=== PATIENT | male | born 1960 | race Caucasian/White ===

== ENCOUNTER 2023-02-13 15:45 | Outpatient (AMB) | payer OTHER, SELFPAY ==
[2023-02-13 15:47] VITALS: BP 128/66; PULSE 90; RESP 13; TEMP 36.6; O2SAT 97; BMI 35.9
--- NOTE | 2023-02-13 15:47 | A.OFFPC_ITS ---
Vital Signs 02/13/23 15:47 Height 5 ft 10 in Weight 250 lb BMI 35.9 BP 128/66 Blood Pressure Location Lt brachial Position Sitting Respiration 13 Pulse 90 Pulse Source Pulse Oximeter Temp 97.8 F Temp Source Temporal Artery Scan Pulse Oximetry (%) 97 Oxygen Delivery Method Room Air Intake Visit Reasons: Swollen feet Intake Note: Patient states that he would like a script sent over for his oxycodone- acetaminophen. Patient also states he never received the valacyclovir. Patient states he would also like a blood pressure cuff ordered. Sample Preparation Supervisor Required: No Accompanied by: Self / Same As Patient Allergies No Known Allergies Allergy (Verified 02/13/23 16:00) Medication List - Last Reconciled 02/13/23 by Sarah Underwood CNP atorvastatin 40 mg PO DAILY 90 days ibuprofen 800 mg PO Q8H PRN lisinopril 10 mg PO DAILY 90 days oxycodone-acetaminophen 5-325 mg 0 tabs PO valacyclovir 500 mg PO BID 14 days vitamin B complex 1 tab PO DAILY 90 days Tobacco use date assessed: 09/08/22 Fall risk assessment: No Falls in past year Last assessed Fall Risk: 02/13/23 Dental Screening Dental Screen Date: 02/13/23 Did you have a dental visit in the last 12 months?: Yes Did you have a dental problem in the last 6 months where you did not have access to dental care?: No Was dental information given to patient?: Patient has dentist HPI HPI Comments History of Present Illness Details 62-year-old male presents with complaints of swollen feet for the past 2 months. The swelling is unchanged. He denies prolonged standing, shortness of breath, chest pain, or fatigue. He has history of chronic bilateral knee pain from osteoarthritis. He notes he has knee replacement surgery schedule with [facility] in May. He states he did not follow-up with pain management as referred by his PCP because I don't need it. [facility] Medical History (Updated 02/13/23 @ 16:00 by Nila Sheriff MA) Shingles Surgical History (Updated 02/13/23 @ 15:59 by Nila Sheriff MA) No pertinent past surgical history Family History (Updated 02/13/23 @ 16:01 by Nila Sheriff MA) Other Alcoholism Social History Housing: Apartment Patient Tobacco Use Status: Former Tobacco user e-Cigarette/Vaping Use: Never Used Second Hand Smoke Exposure: No service: Yes Current occupational status: disabled Current occupational exposures/hazards: No Cognitive needs: No Hearing needs: No Vision needs: No Questionnaire Thrive Questionnaire Date Thrive assessed: 09/08/22 THAO-7 AMB Questionnaire THAO-7 Date THAO - 7 assessed: 09/08/22 Source: Developed by Drs. Prince Peck, Oneida Mena, Ashish Duncan and colleagues, with an educational wicho from [email or web address]. Review of Systems Const Details: Const Denies chills, Denies fatigue, Denies fever(s), Denies headache(s) and Denies weakness ENT Denies dizziness and Denies headache(s) Card Denies chest pain, Denies lightheadedness, Denies dyspnea and Denies other (Palpitations) Resp Denies cough, Denies dyspnea, Denies wheezing and Denies other ( shortness of breath) GI Denies abdominal pain, Denies melena, Denies hematochezia, Denies change in bowel habits, Denies dyspepsia and Denies nausea Denies hematuria and Denies dysuria Musc Reports both feet swelling, Denies abnormal gait, Denies myalgias, Denies arthralgias, Denies numbness and Denies tingling Skin/Breast Denies rash, Denies unusual bruising and Denies wounds Neuro Denies abnormal gait, Denies dizziness, Denies headache(s), Denies memory loss, Denies numbness, Denies Sensory deficit (Neuro), Denies tingling and Denies weakness Psych Denies anxiety and Denies depression Endo Denies fatigue Aller/Immun Denies wheezing Physical exam (Primary Care) Vital Signs: Last Vital Signs Temp 97.8 F 02/13/23 15:47 Pulse 90 02/13/23 15:47 Resp 13 02/13/23 15:47 BP 128/66 02/13/23 15:47 Pulse Ox 97 02/13/23 15:47 Oxygen Delivery Method Room Air 02/13/23 15:47 BMI result Body Mass Index 35.9 Tobacco/Smoking Status: Tobacco use Status Tobacco use date assessed 09/08/22 02/13/23 16:01 Patient Tobacco Use Status Former Tobacco user 02/13/23 16:01 e-Cigarette/Vaping Use Never Used 02/13/23 16:01 Thrive Assessment: Date of Thrive Assessment Date Thrive assessed 09/08/22 02/13/23 16:01 Const Other: General: no acute distress and well developed Nutritional Appearance: well nourished Orientation/consciousness: patient oriented x3 [facility] Head: Yes normocephalic and Yes atraumatic Eyes General: appearance normal, both eyes and all related structures Pupils: Equal, round and reactive pupils present EOM: EOMs intact bilaterally Resp Effort & Inspection: normal respiratory effort Auscultation: clear to auscultation bilaterally Cardio Rate: regular rate Rhythm: regular rhythm Heart sounds: S1 normal heart sound present, S2 normal heart sound present, no gallops, no murmurs and no rubs GI Palpation (GI): No Abdominal aortic bruit present, Soft to palpation, nontender, No hepatosplenomegaly present and No Rebound tenderness present Auscultation: normal bowel sounds General: Yes no CVA tenderness Back/Spine/Pelvis Back: no CVA tenderness Cervical Spine: cervical ROM normal and No Cervical spine tenderness Thoracic/Lumbar Spine: thoraco-lumbar ROM normal, No pain with thoraco-lumbar ROM, No thoracic spinal tenderness and No lumbar spinal tenderness Extrem General: Yes normal to inspection, No calf tenderness Moderate edema noted to bilateral ankle and feet, no erythema or overt injury, normal DP pulse bilat Skin General: warm and dry. Normal skin color. Normal skin turgor Lesions: no lesions Rashes: no rashes Trauma: no lacerations or abrasions Wounds: no wounds Nails: normal Neuro General: patient oriented x3, gait normal and no focal neuro deficit Cranial nerves: Yes Equal, round and reactive pupils present Cognition (Neuro): normal cognition Gait exam (Neuro): Normal gait present Motor exam (neuro): 5/5 motor strength present throughout Sensory Exam: No Sensory deficit (Neuro) Psych Affect: normal affect Assessment and Plan Assessment & Plan (1) Localized swelling of both lower extremities: Code(s): M79.89 - Other specified soft tissue disorders Plan: 62-year-old male presents with complaints of swollen feet for the past 2 months. The swelling is unchanged Possible fluid buildup. May be due abnormal electrolytes or poor renal function Furosemide. Take as prescribed Low-sodium diet encouraged Elevate lower extremities to reduce edema Advised to get pending fasting blood work done Follow-up with PCP in 1 month or return sooner with worsening or new signs and symptoms Verbalized understanding and agreed with treatment plan. Medications: New furosemide 20 mg PO DAILY 5 days 5 tabs 0RF Refilled valacyclovir 500 mg PO BID 14 days 28 tabs 2RF Coding Level of Care Code Est Pt Level 3 (83834) Diagnoses Localized swelling of both lower extremities M79.89 Time Spent (min) 25
== END 2023-02-13 16:26 | disposition home or self-care (01) ==
PROVIDERS: PCP Family Medicine; Visit Provider Nurse Practitioner Family
DX: M79.89 Other specified soft tissue disorders (principal)
CPT/HCPCS: 99213

== ENCOUNTER 2023-03-16 15:06 | Outpatient (AMB) | payer OTHER, SELFPAY ==
[2023-03-16 15:35] VITALS: BP 140/76; PULSE 104; RESP 16; TEMP 37.2; O2SAT 96; BMI 35.4
--- NOTE | 2023-03-16 15:35 | A.OFFPC_ITS ---
Vital Signs 03/16/23 15:35 Height 5 ft 10 in Weight 247 lb BMI 35.4 BP 140/76 H Blood Pressure Location Rt brachial Position Sitting Respiration 16 Pulse 104 H Pulse Source Pulse Oximeter Temp 98.9 F Temp Source Temporal Artery Scan Pulse Oximetry (%) 96 Oxygen Delivery Method Room Air Intake Visit Reasons: 1 mos swelling to BLE, labs review Intake Note: Patient reports he is here to follow up with the swelling his bilateral feet. Patient reports he did not get his labs done because he forgets to fast. Still Operator Batch Or Continuous Required: No Accompanied by: Self / Same As Patient Allergies No Known Allergies Allergy (Verified 03/16/23 15:42) Tobacco use date assessed: 09/08/22 Fall risk assessment: No Falls in past year Last assessed Fall Risk: 03/16/23 Dental Screening Dental Screen Date: 03/16/23 Did you have a dental visit in the last 12 months?: Yes Did you have a dental problem in the last 6 months where you did not have access to dental care?: No Was dental information given to patient?: Patient has dentist HPI 1 mos swelling to BLE, labs review HPI Details 63 y/o male presents to f/u bilateral lower extremities swelling and labs. Had seen Sarah Underwood 02/13/23 for this - was given furosemide 20mg and was recommended a low-sodium diet. Pt reports ongoing swelling bilateral lower extremities. HPI Comments History of Present Illness Details Documentation assistance for Leonel Lopez MD, was provided by Kristopher Phillips, Mineral Technologist on 03/16/2023 4:07 PM EST. I, Dr. Lopez, have read, observed, and verified documentation. PFSH Medical History Shingles Surgical History No pertinent past surgical history Family History Other Alcoholism Social History Housing: Apartment Patient Tobacco Use Status: Former Tobacco user e-Cigarette/Vaping Use: Never Used Second Hand Smoke Exposure: No service: Yes Current occupational status: disabled Current occupational exposures/hazards: No Cognitive needs: No Hearing needs: No Vision needs: No Questionnaire Thrive Questionnaire Date Thrive assessed: 09/08/22 THAO-7 AMB Questionnaire THAO-7 Date THAO - 7 assessed: 09/08/22 Source: Developed by Drs. Prince Peck, Oneida Mena, Ashish Duncan and colleagues, with an educational wicho from [email or web address]. Review of Systems Const Denies chills, Denies fatigue, Denies fever(s), Denies headache(s) and Denies weakness ENT Denies dizziness and Denies headache(s) Card Denies chest pain, Denies lightheadedness, Denies dyspnea and Denies other (P alpitations) Resp Denies cough, Denies dyspnea, Denies wheezing and Denies other ( shortness of breath) Musc Denies numbness and Denies tingling Neuro Denies dizziness, Denies headache(s), Denies numbness, Denies tingling, Denies paresthesias and Denies weakness Psych Denies anxiety and Denies depression Endo Denies fatigue Aller/Immun Denies wheezing Physical exam (Primary Care) Vital Signs: Last Vital Signs Temp 98.9 F 03/16/23 15:35 Pulse 104 H 03/16/23 15:35 Resp 16 03/16/23 15:35 BP 140/76 H 03/16/23 15:35 Pulse Ox 96 03/16/23 15:35 Oxygen Delivery Method Room Air 03/16/23 15:35 BMI result Body Mass Index 35.4 Tobacco/Smoking Status: Tobacco use Status Tobacco use date assessed 09/08/22 03/16/23 15:44 Patient Tobacco Use Status Former Tobacco user 03/16/23 15:44 e-Cigarette/Vaping Use Never Used 03/16/23 15:44 Thrive Assessment: Date of Thrive Assessment Date Thrive assessed 09/08/22 03/16/23 15:44 Const General: no acute distress and well developed Nutritional Appearance: well nourished Orientation/consciousness: patient oriented x3 [facility] Head: Yes normocephalic and Yes atraumatic Eyes General: appearance normal, both eyes and all related structures Pupils: Equal, round and reactive pupils present EOM: EOMs intact bilaterally Resp Effort & Inspection: normal respiratory effort Auscultation: clear to auscultation bilaterally Cardio Rate: regular rate Rhythm: regular rhythm Heart sounds: S1 normal heart sound present, S2 normal heart sound present, no gallops, no murmurs and no rubs Neuro General: patient oriented x3 and gait normal Cranial nerves: Yes Equal, round and reactive pupils present Psych Affect: normal affect Assessment and Plan Assessment & Plan (1) Localized swelling of both lower extremities: Code(s): M79.89 - Other specified soft tissue disorders Plan: Lower extremity edema bilaterally No pulmonary congestion This appears to be lower extremity venous insufficiency Encouraged elevation of lower extremities Encouraged salt/sodium avoidance Will give him another script for furosemide which he can continue Checking labs (2) Bilateral knee pain: Code(s): M25.561 - Pain in right knee; M25.562 - Pain in left knee Plan: Osteoarthritis bilateral knees and [facility] plans total knee replacements beginning in May with his left knee. Orders: Orders Comprehensive [place]. Panel Fast Today M79.89 - Other specified soft tissue disorders, Z00.00 - Encounter for general adult medical examination without abnormal findings Lipid Panel Today Z00.00 - Encounter for general adult medical examination without abnormal findings Prostate Specific Antigen Scr Today Z12.5 - Encounter for screening for malignant neoplasm of prostate TSH reflex Free T4 Today M79.89 - Other specified soft tissue disorders, Z00.00 - Encounter for general adult medical examination without abnormal findings Microalbumin, Random (w Creat) Today I10 - Essential (primary) hypertension, M79.89 - Other specified soft tissue disorders Complete Blood Count Auto Diff Today M79.89 - Other specified soft tissue disorders, Z00.00 - Encounter for general adult medical examination without abnormal findings UA and rflx microscopic Today M79.89 - Other specified soft tissue disorders, Z00.00 - Encounter for general adult medical examination without abnormal findings Medications: Changed From furosemide 20 mg PO DAILY 5 days 5 tabs 0RF To furosemide 10 mg (1/2 x 20 mg) PO DAILY 30 days 15 tabs 1RF Coding Level of Care Code Est Pt Level 3 (60456) Diagnoses Localized swelling of both lower extremities M79. Bilateral knee pain M25.561; M25.562
== END 2023-03-16 16:29 | disposition home or self-care (01) ==
PROVIDERS: PCP Family Medicine; Visit Provider Family Medicine
DX: M79.89 Other specified soft tissue disorders (principal); M25.561 Pain in right knee; M25.562 Pain in left knee
CPT/HCPCS: 99213

== ENCOUNTER 2023-03-31 08:39 | Outpatient (REF) | payer OTHER, SELFPAY ==
[2023-03-31 11:28] LABS: MANUAL DIFF FLAG NO
[2023-03-31 11:34] LABS: Basophils Absolute Auto 0.1 X10*3/uL (0.0-0.2); Basophils Percent Auto 0.6 % (0-2); Eosinophils Absolute Auto 0.6 X10*3/uL (0.0-0.4); Eosinophils Percent Auto 6.9 % (0-4); Hematocrit 41.4 % (42.0-52.0); Hemoglobin 13.9 g/dl (14.0-18.0); Imm Gran Abs Auto 0.02 X10*3/uL (0.00-0.03); Imm Gran Pct Auto 0.2 % (0.0-0.4); Lymphocytes Absolute Auto 1.7 X10*3/uL (1.2-4.9); Lymphocytes Percent Auto 20.8 % (20-40); Mean Corpuscular HGB Conc 33.6 g/dl (31.0-36.0); Mean Corpuscular Hemoglobin 31.2 pg (27.0-33.0); Mean Platelet Volume 10.7 fL (9.4-12.4); Monocytes Absolute Auto 0.7 X10*3/uL (0.1-1.2); Monocytes Percent Auto 7.8 % (2-11); Neutrophils Absolute Auto 5.3 x10*3/uL (2.0-8.3); Neutrophils Percent Auto 63.7 % (45-73); Platelet Count 283 X10*3/uL (160-400); Red Blood Count 4.45 X10*6/uL (4.60-5.80); Red Cell Distribution Width 12.7 % (11.0-16.0); White Blood Count 8.3 X10*3/uL (4.8-10.8)
[2023-03-31 11:42] LABS: Appearance Urine Clear; Color Urine Yellow; Glucose Urine UA Negative (Negative); Leukocyte Esterase Urine Negative (Negative); Nitrite Urine Negative (Negative); PH 5.5 (5.0-9.0); Specific Gravity - Urine 1.015 (1.005-1.025); Urine Blood Negative (Negative); Urine Ketones Negative (Negative); Urine Protein Negative (Neg-Trace)
[2023-03-31 12:45] LABS: Creatinine Urine 84.72 mg/dL; Microalbum/Creatinine Ratio Ur 8.2 ug/mg cr (<30)
[2023-03-31 14:44] LABS: Alanine Aminotransferase 51 U/L (0-40); Albumin Level 4.3 g/dL (3.5-5.0); Alkaline Phosphatase 104 U/L (39-117); Anion Gap 13 (12-20); Aspartate Amino Transferase 26 U/L (5-37); Bilirubin Total 0.6 mg/dL (0.0-1.0); Blood Urea Nitrogen 18 mg/dL (9-16); Calcium 9.8 mg/dL (8.4-10.2); Carbon Dioxide 27 mmol/L (22-29); Chloride 103 mmol/L (96-108); Cholesterol 146 mg/dL (<200); Estimated Glomerular Filt Rate > 60; Glucose Fasting 183 mg/dL (60-99); HDL Cholesterol 33 mg/dL (>40); LDL Cholesterol Calculated 78 mg/dL (<100); Potassium 4.3 mmol/L (3.3-5.1); Sodium 139 mmol/L (135-145); Total Protein 7.4 g/dL (6.5-8.0); Triglycerides 178 mg/dL (<150)
[2023-03-31 15:23] LABS: Prostate Specific Antigen Scr 0.61 ng/mL (<0.05-4.0)
[2023-03-31 15:43] LABS: TSH reflex Free T4 1.22 uIU/mL (0.32-4.0)
== END 2023-03-31 08:40 | disposition home or self-care (01) ==
LOC: HO.WFDLDS 08:39
PROVIDERS: Visit Provider Family Medicine
DX: Z00.00 Encounter for general adult medical examination without abnormal findings (principal); Z12.5 Encounter for screening for malignant neoplasm of prostate; M79.89 Other specified soft tissue disorders; I10 Essential (primary) hypertension
CPT/HCPCS: 36415; 80053; 80061; 81003; 82043; 82570; 84153; 84443; 85025

== ENCOUNTER 2023-05-25 13:26 | Outpatient (AMB) | payer OTHER, SELFPAY ==
--- NOTE | 2023-05-25 13:16 | MHC.PC.OV ---
Intake Visit Reasons: f/u labs Intake Note: Patient is here to follow up on blood work today. Patient would like to talk about Oxycocone/ acetominphen prescrition. Allergies No Known Allergies Allergy (Verified 05/25/23 13:19) Tobacco use date assessed: 05/25/23 Fall risk assessment: No Falls in past year Last assessed Fall Risk: 05/25/23 HPI f/u labs HPI Details 63 y/o male presents to f/u labs via telemedicine. Mild normocytic anemia Elevated fasting blood sugar Elevated ALT Mildly elevated triglycerides with low HDL, on atorvastatin PFSH Medical History Shingles Surgical History No pertinent past surgical history Family History Other Alcoholism Social History Housing: Apartment Patient Tobacco Use Status: Former Tobacco user e-Cigarette/Vaping Use: Never Used Second Hand Smoke Exposure: No service: Yes Current occupational status: disabled Current occupational exposures/hazards: No Cognitive needs: No Hearing needs: No Vision needs: No Questionnaire Thrive Questionnaire Date Thrive assessed: 09/08/22 THAO-7 AMB Questionnaire THAO-7 Date THAO - 7 assessed: 09/08/22 Source: Developed by Drs. Prince Peck, Oneida Mena, Ashish Duncan and colleagues, with an educational wicho from [employer]. Review of Systems Const Denies chills, Denies fatigue, Denies fever(s), Denies headache(s) and Denies weakness ENT Denies dizziness and Denies headache(s) Card Denies dyspnea Resp Denies cough, Denies dyspnea, Denies wheezing and Denies other (shortness of breath) Musc Denies numbness and Denies tingling Neuro Denies dizziness, Denies headache(s), Denies numbness, Denies tingling and Denies weakness Psych Denies anxiety and Denies depression Endo Denies fatigue Aller/Immun Denies wheezing Physical exam (Primary Care) Tobacco/Smoking Status: Tobacco use Status Tobacco use date assessed 05/25/23 05/25/23 13:21 Patient Tobacco Use Status Former Tobacco user 05/25/23 13:17 e-Cigarette/Vaping Use Never Used 05/25/23 13:17 Thrive Assessment: Date of Thrive Assessment Date Thrive assessed 09/08/22 05/25/23 13:17 Telehealth Telehealth Location of provider rendering services: practice address Location of patient: address on file Patient Identification confirmed using: Name, : Yes Telehealth method: voice only Patient verbally consented to treatment: Yes Patient verbally consented to billing insurance company: Yes Patient informed of any privacy concerns related to visit: Yes Assessment and Plan Assessment & Plan (1) Mild anemia: Code(s): D64.9 - Anemia, unspecified Plan: We can repeat his CBC with his next blood draw (2) Elevated fasting glucose: Code(s): R73.01 - Impaired fasting glucose Plan: recheck fasting blood sugar with next blood draw will add A1c as well (3) Elevated ALT measurement: Code(s): R74.01 - Elevation of levels of liver transaminase levels Plan: recheck liver enzyme in 6-8 weeks (4) Low HDL (under 40): Code(s): E78.6 - Lipoprotein deficiency Plan: encouraged exercise and [place] 3 fatty acids in diet (5) Bilateral knee pain: Code(s): M25.561 - Pain in right knee; M25.562 - Pain in left knee Plan: patient notes ongoing severe bilateral knee pain. Does have imaging which shows osteoarthritis of the knees with bone spurring will review his prior medical records he can schedule an appointment for evaluation pain control for 7-10 days from now. Orders: Orders Hemoglobin A1c Today R73.01 - Impaired fasting glucose Comprehensive [place]. Panel Fast Today R74.01 - Elevation of levels of liver transaminase levels, Z00.00 - Encounter for general adult medical examination without abnormal findings Complete Blood Count Auto Diff Today D64.9 - Anemia, unspecified, Z00.00 - Encounter for general adult medical examination without abnormal findings Coding Level of Care Code Tele Est Pt Level 2 (03191) Diagnoses Mild anemia D64.9 Elevated fasting glucose R73.01 Elevated ALT measurement R74.01 Low HDL (under 40) E78.6 Bilateral knee pain M25.561; M25.562
== END 2023-05-25 14:45 ==
LOC: HO.HMGFM 13:26
PROVIDERS: PCP Family Medicine; Visit Provider Family Medicine
DX: D64.9 Anemia, unspecified (principal); R73.01 Impaired fasting glucose; R74.01 Elevation of levels of liver transaminase levels; E78.6 Lipoprotein deficiency; M25.561 Pain in right knee; M25.562 Pain in left knee
CPT/HCPCS: 99441

== ENCOUNTER 2023-09-16 12:06 | Outpatient (AMB) | payer OTHER, SELFPAY ==
[2023-09-16 12:15] VITALS: BP 142/76; PULSE 82; O2SAT 97; BMI 33.6
--- NOTE | 2023-09-16 12:15 | A.OFFPC_ITS ---
Vital Signs 09/16/23 12:15 Height 5 ft 10 in Weight 234 lb 4 oz BMI 33.6 BP 142/76 H Blood Pressure Location Lt brachial Position Sitting Pulse 82 Pulse Source Pulse Oximeter Pulse Oximetry (%) 97 Oxygen Delivery Method Room Air Intake Visit Reasons: Follow up knee pain Intake Note: Patient is here to follow up on bilateral knee pain. Allergies No Known Allergies Allergy (Verified 09/16/23 12:20) Tobacco use date assessed: 09/16/23 Fall risk assessment: No Falls in past year Last assessed Fall Risk: 09/16/23 Dental Screening Dental Screen Date: 09/16/23 Did you have a dental visit in the last 12 months?: Yes Did you have a dental problem in the last 6 months where you did not have access to dental care?: No Was dental information given to patient?: Patient has dentist HPI Follow up knee pain HPI Details 63 y/o male presents to f/u knee pain. Had seen a specialist at [facility] but pt reports he had been unsatisfied with their treatment plan/surgery. Knee x-ray in 2021 showed significant arthritic changes. [facility] Medical History Shingles Surgical History No pertinent past surgical history Family History Other Alcoholism Social History Housing: Apartment Patient Tobacco Use Status: Former Tobacco user e-Cigarette/Vaping Use: Never Used Second Hand Smoke Exposure: No service: Yes Current occupational status: disabled Current occupational exposures/hazards: No Cognitive needs: No Hearing needs: No Vision needs: No Questionnaire PHQ-9 Over the last 2 weeks, how often have you been bothered by any of the following problems? 1. Little interest or pleasure in doing things: not at all 2. Feeling down, depressed, or hopeless: not at all 3. Trouble falling or staying asleep, or sleeping too much: nearly every day 4. Feeling tired or having little energy: not at all 5. Poor appetite or overeating: not at all 6. Feeling bad about yourself - or that you are a failure or have let yourself or your family down: not at all 7. Trouble concentrating on things, such as reading the newspaper or watching television: not at all 8. Moving or speaking so slowly that other people could have noticed. Or the opposite - being so fidgety or restless that you have been moving around a lot more than usual: not at all 9. Thoughts that you would be better off or of hurting yourself in some way: not at all Total score: 3 Depression Screening Interpretation: Negative Depression Screening Done: Yes 69759 - PHQ-9 Billing: Yes Source: Developed by Drs. Prince Peck, Oneida Mena, Ashish Duncan and colleagues, with an educational wicho from [employer]. Thrive Questionnaire Date Thrive assessed: 09/16/23 I am a: Patient What is your living situation today?: I have a steady place to live Within the past 12 months, did the food you bought not last and you didn't have the money to get more?: Never true Within the past 12 months, did you worry whether your food would run out before you got money to buy more?: Never true Do you have trouble paying for medicines?: No Do you have trouble getting transportation to medical appointments?: No Do you have trouble paying your heating and electricity bill?: No Do you have trouble taking care of your child, family member or friend?: No Do you have trouble with day-to-day activities such as bathing, preparing meals, shopping, managing finances, etc.?: No Are you currently unemployed and looking for a job?: No Are you interested in more education?: No THRIVE Score: 0 AUDIT C Alcohol Use Questionnaire (AUDIT-C) 1. How often do you have a drink containing alcohol?: 2-3 times a week 2. How many drinks containing alcohol do you have on a typical day when you are drinking?: 1 or 2 3. How often do you have six or more drinks on one occasion?: Never Total Score: 3 THAO-7 AMB Questionnaire THAO-7 Date THAO - 7 assessed: 09/16/23 Feeling nervous, anxious, or on edge: 0 = Not at all Not being able to stop or control worryin = Not at all Worrying too much about different things: 0 = Not at all Trouble relaxin = Not at all Being so restless that it is hard to sit still: 0 = Not at all Becoming easily annoyed or irritable: 0 = Not at all Feeling afraid as if something awful might happen: 0 = Not at all Total THAO-7 score (0-4 normal; 5-9 mild; 10-14 moderate; 15-21 severe): 0 Source: Developed by Drs. Prince Peck, Oneida Mena, Ashish Duncan and colleagues, with an educational wicho from [employer]. THAO-7 Assessment Billing THAO-7 Assessment Tool: THAO-7 Assessment 97511 Physical exam (Primary Care) Vital Signs: Last Vital Signs Pulse 82 09/16/23 12:15 BP 142/76 H 09/16/23 12:15 Pulse Ox 97 09/16/23 12:15 Oxygen Delivery Method Room Air 09/16/23 12:15 BMI result Body Mass Index 33.6 Tobacco/Smoking Status: Tobacco use Status Tobacco use date assessed 09/16/23 09/16/23 12:30 Patient Tobacco Use Status Former Tobacco user 09/16/23 12:30 e-Cigarette/Vaping Use Never Used 09/16/23 12:30 PHQ-9: PHQ-9 Score PHQ-9: Total score 3 09/16/23 12:44 Depression Screening Interpretation: Negative Thrive Assessment: Date of Thrive Assessment Date Thrive assessed 09/16/23 09/16/23 12:30 Assessment and Plan Assessment & Plan (1) Bilateral knee pain: Code(s): M25.561 - Pain in right knee; M25.562 - Pain in left knee Plan: Ongoing?bilateral?knee?pain. X-rays?show?moderately?severe?arthritis?worst?in?medial?compartments Bilaterally Will?refer?to?ortho?to?consider?injection?therapy?verses?surgery.??Patient?would ?like?to?consider?all?options?prior?to?surgeries. He?gets?some?relief?with?ibuprofen?800?mg?once?a?day. Will?try?meloxicam?which?may?give?him?longer?relief?for?single?dose?per?day Orders: Referrals Orthopedics Referral M17.9 - Osteoarthritis of knee, unspecified, M25.561 - Pain in right knee, M25.562 - Pain in left knee Medications: New meloxicam 15 mg PO DAILY 30 tabs 2RF 30 days prednisone 40 mg (2 x 20 mg) PO DAILY 8 tabs 0RF 4 days Refilled lisinopril 10 mg PO DAILY 90 tabs 3RF 90 days Coding Level of Care Code Est Pt Level 3 (64872) Diagnoses Bilateral knee pain M25.561; M25.562 Additional Codes THAO-7 Assessment Billing - THAO-7 Assessment Tool: THAO-7 Assessment 41119 ([id number])
== END 2023-09-16 14:01 | disposition home or self-care (01) ==
PROVIDERS: PCP Family Medicine; Visit Provider Family Medicine
DX: M25.561 Pain in right knee (principal); M25.562 Pain in left knee
CPT/HCPCS: 99213

== ENCOUNTER 2023-10-08 09:23 | Outpatient (REF) | payer OTHER, SELFPAY ==
--- NOTE | ~2023-10-08 | XR_ITS ---
EXAMINATION: XR KNEE, BILATERAL CLINICAL INDICATION: Pain in bilateral knees. TECHNIQUE: 3 views of each knee. FINDINGS: RIGHT KNEE: The bones are diffusely demineralized. No significant suprapatellar effusion. Vvgcmujh-ez-pgjolw narrowing of the medial compartment with subchondral sclerosis. Tricompartmental osteophytes. Advanced degenerative changes in the patellofemoral joint. LEFT KNEE: Severe degenerative changes in the medial compartment with obliteration of the joint space and subchondral remodeling and sclerosis. Tricompartmental osteophytes. No significant joint effusion. Advanced degenerative changes in the patellofemoral joint. XR/XR knee LT 3V IMPRESSION: Severe degenerative changes bilateral knees, left greater than right.
--- NOTE | ~2023-10-08 | XR_ITS ---
EXAMINATION: XR KNEE, BILATERAL CLINICAL INDICATION: Pain in bilateral knees. TECHNIQUE: 3 views of each knee. FINDINGS: RIGHT KNEE: The bones are diffusely demineralized. No significant suprapatellar effusion. Lalsfkju-kl-tsrdzt narrowing of the medial compartment with subchondral sclerosis. Tricompartmental osteophytes. Advanced degenerative changes in the patellofemoral joint. LEFT KNEE: Severe degenerative changes in the medial compartment with obliteration of the joint space and subchondral remodeling and sclerosis. Tricompartmental osteophytes. No significant joint effusion. Advanced degenerative changes in the patellofemoral joint. XR/XR knee RT 3V IMPRESSION: Severe degenerative changes bilateral knees, left greater than right.
== END 2023-10-08 09:24 | disposition home or self-care (01) ==
LOC: HO.HOSX 09:23
PROVIDERS: Visit Provider Orthopaedic Surgery
DX: M25.562 Pain in left knee (principal); M25.561 Pain in right knee
CPT/HCPCS: 73562; 99202

== ENCOUNTER 2023-10-08 13:03 | Outpatient (AMB) | payer OTHER, SELFPAY ==
[2023-10-08 13:44] VITALS: BMI 33.6
--- NOTE | 2023-10-08 13:44 | MHC.OFFVIS ---
Intake Vital Signs 10/08/23 13:44 Height 5 ft 10 in Weight 234 lb BMI 33.6 Intake Visit Reasons: [employer]-B/L knee pain Intake Note: Russel is a 63 year old male who presents as a new patient with bilateral knee pain. Patient reports his pain has been going on for about 2 years and is a 7 on the 1-10 pain scale. Left is worse then the Right. He states he has had cortisone injections which gave him minimal relief. He has also had viscosupplementation injections which gave him fairly good relief. He is using meloxicam for pain. He did have total knee replacement surgery scheduled in May of last year but canceled his surgery. The patient wishes to hold off on total knee replacement surgery for as long as possible. He has done physical therapy exercises which aggravated his pain. Allergies No Known Allergies Allergy (Verified 10/08/23 13:51) Medication List - Last Reconciled 10/08/23 by Marcelo Obrien MD atorvastatin 40 mg PO DAILY 90 days blood pressure monitor Automatic, Digital. Dx: I10. Daily As directed, 999 days/lifetime furosemide 10 mg (1/2 x 20 mg) PO DAILY 30 days furosemide 10 mg (1/2 x 20 mg) PO DAILY 30 days lisinopril 10 mg PO DAILY 90 days meloxicam 15 mg PO DAILY 30 days [facility] Medical History Shingles Surgical History No pertinent past surgical history Family History Other Alcoholism Social History (Updated 10/08/23 @ 13:52 by Destiny Mackey CMA) Housing: Apartment Patient Tobacco Use Status: Former Tobacco user e-Cigarette/Vaping Use: Never Used Second Hand Smoke Exposure: No service: Yes Current occupational status: disabled Current occupation: Right hand dominate Current occupational exposures/hazards: No Cognitive needs: No Hearing needs: No Vision needs: No Physical Exam Vital Signs: BMI result Body Mass Index 33.6 Const Other: Well-nourished well-developed very friendly male awake alert and oriented x3 in no acute distress Extrem Other: Bilateral lower extremity examination shows good capillary refill, no skin lesions noted, normal sensation light touch Bilateral knee examination shows minimal effusions, palpable crepitus range of motion, pain with range of motion, range of motion from -3 degrees to 115 degrees, no instability Results Reviewed Results Reviewed: X-rays of the patient's bilateral knees taken today show joint space narrowing, subchondral sclerosis, no acute bony abnormalities Assessment & Plan Assessment & Plan (1) Arthritis of left knee: Code(s): M17.12 - Unilateral primary osteoarthritis, left knee (2) Arthritis of right knee: Code(s): M17.11 - Unilateral primary osteoarthritis, right knee Plan Mr. Duvall presents with bilateral knee pains, left greater than right, due to degenerative joint disease. I had a lengthy discussion with the patient regarding the treatment options. Wishes to hold off on total knee replacement surgery for as long as possible. I agree with this plan. Has not gotten good relief from cortisone injections in the past. Thus, I will see whether not the patient's insurance company will cover a viscosupplementation injection for both of his knees. I will see the patient back once the injections are available. Feel free to call me at any time should questions regarding his orthopedic management arise. Thank you very much for asking me to see this very friendly gentleman. I spent 22 minutes in reviewing the patient's records and imaging studies, seeing the patient and documenting in the medical record. Orders: Orders XR knee LT 3V Today M25.562 - Pain in left knee XR knee RT 3V Today M25.561 - Pain in right knee Coding Level of Care Code New Pt Level 2 (12123) Diagnoses Arthritis of left knee M17.12 Arthritis of right knee M17.11
== END 2023-10-08 14:05 | disposition home or self-care (01) ==
PROVIDERS: PCP Family Medicine; Visit Provider Orthopaedic Surgery
DX: M17.0 Bilateral primary osteoarthritis of knee (principal)
CPT/HCPCS: 99202

== ENCOUNTER 2023-11-17 12:08 | Outpatient (AMB) | payer OTHER, SELFPAY ==
--- NOTE | 2023-11-17 11:58 | A.OFFVIS_ITS ---
Vital Signs 11/17/23 13:05 Height 5 ft 10 in Weight 234 lb BMI 33.6 Intake Visit Reasons: OV- Bilateral knee Synvisc-One gel injectons Intake Note: Russel is a 63 year old male who presents with complaints of progressively worsening bilateral knee pains, right greater than left. He describes his pains as sharp in nature. He has had cortisone injections in the past which gave him minimal relief. Has also done physical therapy which aggravated his pain. He has tried Tylenol and anti-inflammatory medicines which gave him minimal relief. Would like to hold off on total knee replacement surgery for as long as possible. Allergies No Known Allergies Allergy (Verified 11/17/23 13:08) Medication List - Last Reconciled 11/17/23 by Marcelo Obrien MD atorvastatin 40 mg PO DAILY 90 days blood pressure monitor Automatic, Digital. Dx: I10. Daily As directed, 999 days/lifetime furosemide 10 mg (1/2 x 20 mg) PO DAILY 30 days furosemide 10 mg (1/2 x 20 mg) PO DAILY 30 days lisinopril 10 mg PO DAILY 90 days meloxicam 15 mg PO DAILY 30 days [facility] Medical History Shingles Surgical History No pertinent past surgical history Family History Other Alcoholism Social History (Updated 10/08/23 @ 13:52 by Destiny Mackey CMA) Housing: Apartment Patient Tobacco Use Status: Former Tobacco user e-Cigarette/Vaping Use: Never Used Second Hand Smoke Exposure: No service: Yes Current occupational status: disabled Current occupation: Right hand dominate Current occupational exposures/hazards: No Cognitive needs: No Hearing needs: No Vision needs: No Physical Exam Vital Signs: BMI result Body Mass Index 33.6 Const Other: Well-nourished well-developed very friendly male awake alert and oriented x3 in no acute distress Extrem Other: Bilateral lower extremity examination shows good capillary refill, no skin les ions noted, normal sensation light touch Bilateral knee examination shows minimal effusions, palpable crepitus with range of motion, pain with range of motion, no instability Office Procedures Joint Injection/Drain Joint Injection/Drain Primary Site: left knee Prep: site was prepped using aseptic technique and other (48 mg of Synvisc-One viscosupplementation) Injected: 1% plain lidocaine Procedure: The patient tolerated the procedure well Coding 16453 - Large joint Procedure code (CPT) selection complete Joint Injection/Drain Joint Injection/Drain Primary Site: right knee Prep: site was prepped using aseptic technique and other (48 mg of Synvisc-One viscosupplementation) Injected: 1% plain lidocaine Procedure: The patient tolerated the procedure well Coding 74166 - Large joint Procedure code (CPT) selection complete Results Reviewed Results Reviewed: X-rays of the patient's bilateral knee show joint space narrowing, subchondral sclerosis, no acute bony abnormalities Assessment & Plan Assessment & Plan (1) Arthritis of right knee: Code(s): M17.11 - Unilateral primary osteoarthritis, right knee Category: Medical (2) Arthritis of left knee: Code(s): M17.12 - Unilateral primary osteoarthritis, left knee Category: Medical Plan Mr. Duvall presents with bilateral knee pains due to degenerative joint disease. I had a lengthy discussion with the patient regarding the treatment options. The patient wishes to hold off on surgery for as long as possible. I agree with this plan. The risks and benefits of bilateral knee Synvisc-One viscosupplementation injections were discussed at length with the patient. The patient wished to proceed. He tolerated the injections well. He will continue with his home exercise program. He will follow up with me on an as-needed basis should his symptoms not plateau at an unacceptable level over the next few months. Feel free to call me at any time should questions regarding his orthopedic management arise. I spent 22 minutes in reviewing the patient's records and imaging studies, seeing the patient and documenting in the medical record. Orders: Orders AMB Joint Injection/Aspiration Today M17.11 - Unilateral primary osteoarthritis, right knee AMB Joint Injection/Aspiration Today M17.12 - Unilateral primary osteoarthritis, left knee Coding Level of Care Code Est Pt Level 2 (88719) Diagnoses Arthritis of right knee M17.11 Arthritis of left knee M17.12 CPT Codes Coding - 06660 Large joint: 87444 - Large joint ([id number]) Coding - 12122 Large joint: 64804 - Large joint ([id number])
[2023-11-17 13:05] VITALS: BMI 33.6
== END 2023-11-17 13:41 | disposition home or self-care (01) ==
PROVIDERS: PCP Family Medicine; Visit Provider Orthopaedic Surgery
DX: M17.0 Bilateral primary osteoarthritis of knee (principal)
CPT/HCPCS: 20610; 99213

== ENCOUNTER → 2023-11-17 12:08 | Outpatient (BNVA) | payer OTHER, SELFPAY | PROVIDERS: PCP Family Medicine; Visit Provider Orthopaedic Surgery | DX: M17.0 Bilateral primary osteoarthritis of knee (principal) | CPT/HCPCS: 20610; 99212; J7325 ==

== ENCOUNTER 2024-02-16 11:24 | Outpatient (AMB) | payer OTHER, SELFPAY ==
--- NOTE | 2024-02-16 11:25 | MHC.OFFVIS ---
Intake Visit Reasons: OV-Bilateral knee Synvisc-One gel inj. follow up Intake Note: Russel is a 63 year old male who presents to the office today for a follow up bilateral knee Synvisc-One gel injections. Pt states he had no relief from the gel injection. He continues to take meloxicam which gives him only mild relief. At this point his left knee pain is more severe than is his right. He wishes to hold off on left total knee replacement surgery for as long as possible. The patient states that he recently ordered topical patches online for his knee pains. Allergies No Known Allergies Allergy (Verified 02/16/24 11:25) Medication List - Last Reconciled 02/16/24 by Marcelo Obrien MD atorvastatin 40 mg PO DAILY 90 days blood pressure monitor Automatic, Digital. Dx: I10. Daily As directed, 999 days/lifetime furosemide 10 mg (1/2 x 20 mg) PO DAILY 30 days furosemide 10 mg (1/2 x 20 mg) PO DAILY 30 days lisinopril 10 mg PO DAILY 90 days [facility] Medical History Shingles Surgical History No pertinent past surgical history Family History Other Alcoholism Social History (Updated 10/08/23 @ 13:52 by Destiny Mackey CMA) Housing: Apartment Patient Tobacco Use Status: Former Tobacco user e-Cigarette/Vaping Use: Never Used Second Hand Smoke Exposure: No service: Yes Current occupational status: disabled Current occupation: Right hand dominate Current occupational exposures/hazards: No Cognitive needs: No Hearing needs: No Vision needs: No Physical Exam Const Other: Well-nourished well-developed very friendly male awake alert and oriented x3 in no acute distress Extrem Other: Bilateral lower extremity examination shows good capillary refill, no skin lesions noted, normal sensation light touch Bilateral knee examination shows minimal effusions, palpable crepitus with range of motion, pain with range of motion, no instability Results Reviewed Results Reviewed: X-rays of the patient's bilateral knee show joint space narrowing, subchondral sclerosis, no acute bony abnormalities Assessment & Plan Assessment & Plan (1) Arthritis of right knee: Code(s): M17.11 - Unilateral primary osteoarthritis, right knee Category: Medical (2) Arthritis of left knee: Code(s): M17.12 - Unilateral primary osteoarthritis, left knee Category: Medical Plan Mr. Duvall presents with bilateral knee pains due to degenerative joint disease. I had a lengthy discussion with the patient regarding the treatment options. The patient wishes to hold off on surgery for as long as possible. I agree with this plan. He has not gotten good relief from cortisone injections or viscosupplementation injections. We will hold off on another injection at this time. The patient will follow up with me on an as-needed basis should his symptoms worsen in any way. Feel free to call me at any time should questions regarding his orthopedic management arise. Of note, I read the reason for today's visit as bilateral Synvisc One injections. After I klaeb up lidocaine and a Synvisc One injection I realized that today's visit was not for the injections. The patient was not billed for the injections which were then listed as wasted in the system. I spent 22 minutes in reviewing the patient's records and imaging studies, seeing the patient and documenting in the medical record. Coding Level of Care Code Est Pt Level 3 (75176) Diagnoses Arthritis of right knee M17.11 Arthritis of left knee M17.12
== END 2024-02-16 11:56 | disposition home or self-care (01) ==
PROVIDERS: PCP Family Medicine; Visit Provider Orthopaedic Surgery
DX: M17.0 Bilateral primary osteoarthritis of knee (principal)
CPT/HCPCS: 99213

== ENCOUNTER → 2024-02-16 11:24 | Outpatient (BNVA) | payer OTHER, SELFPAY | PROVIDERS: PCP Family Medicine; Visit Provider Orthopaedic Surgery | DX: M17.0 Bilateral primary osteoarthritis of knee (principal) | CPT/HCPCS: 99212; J7325 ==

== ENCOUNTER 2024-05-27 10:06 | Outpatient (AMB) | payer OTHER, SELFPAY ==
--- NOTE | 2024-05-27 10:13 | A.OFFPC_ITS ---
Vital Signs 05/27/24 10:15 Height 5 ft 10 in Weight 217 lb 4 oz BMI 31.2 BP 128/59 L Blood Pressure Location Rt brachial Position Sitting Respiration 16 Pulse 96 Pulse Source Pulse Oximeter Temp 97.7 F Temp Source Temporal Artery Scan Pulse Oximetry (%) 97 Oxygen Delivery Method Room Air Intake Visit Reasons: ed follow up er discharge on05/23 Intake Note: ed follow up Allergies No Known Allergies Allergy (Verified 05/27/24 10:14) Tobacco use date assessed: 09/16/23 Dental Screening Dental Screen Date: 09/16/23 HPI ed follow up er discharge on05/23 HPI Details Patient went to [facility] ED for Abd pain. 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 Pt left AMA. Has been using meloxicam for pain control. Declines medication therapy for mood today. Denies any thoughts of harming himself. Appetite has been fluctuating but mostly okay. PFSH Medical History Shingles Surgical History No pertinent past surgical history Family History Other Alcoholism Social History (Updated 10/08/23 @ 13:52 by Destiny Mackey CMA) Housing: Apartment Patient Tobacco Use Status: Former Tobacco user e-Cigarette/Vaping Use: Never Used Second Hand Smoke Exposure: No service: Yes Current occupational status: disabled Current occupation: Right hand dominate Current occupational exposures/hazards: No Cognitive needs: No Hearing needs: No Vision needs: No Questionnaire Thrive Questionnaire Date Thrive assessed: 09/16/23 THAO-7 AMB Questionnaire THAO-7 Date THAO - 7 assessed: 09/16/23 Source: Developed by Drs. Prince Peck, Oneida Mena, Ashish Duncan and colleagues, with an educational wicho from [employer]. Review of Systems Const Denies chills, Denies fatigue, Denies fever(s), Denies headache(s) and Denies weakness ENT Denies dizziness and Denies headache(s) Card Denies dyspnea Resp Denies cough, Denies dyspnea, Denies wheezing and Denies other (shortness of breath) GI Reports abdominal pain Musc Denies numbness and Denies tingling Neuro Denies dizziness, Denies headache(s), Denies numbness, Denies tingling and Denies weakness Endo Denies fatigue Aller/Immun Denies wheezing Physical exam (Primary Care) Vital Signs: Last Vital Signs Temp 97.7 F 05/27/24 10:15 Pulse 96 05/27/24 10:15 Resp 16 05/27/24 10:15 BP 128/59 L 05/27/24 10:15 Pulse Ox 97 05/27/24 10:15 Oxygen Delivery Method Room Air 05/27/24 10:15 BMI result Body Mass Index 31.2 Tobacco/Smoking Status: Tobacco use Status Tobacco use date assessed 09/16/23 05/27/24 10:16 Patient Tobacco Use Status Former Tobacco user 05/27/24 10:16 e-Cigarette/Vaping Use Never Used 05/27/24 10:16 Thrive Assessment: Date of Thrive Assessment Date Thrive assessed 09/16/23 05/27/24 10:16 Const General: well developed; No acute distress Nutritional Appearance: well nourished Orientation/consciousness: patient oriented x3 [facility]: Yes normocephalic and Yes atraumatic Eyes General: appearance normal, both eyes and all related structures Pupils: Equal, round and reactive pupils present EOM: EOMs intact bilaterally Resp Effort & Inspection: normal respiratory effort Neuro General: patient oriented x3 and gait normal Cranial nerves: Yes Equal, round and reactive pupils present Psych Affect: normal affect Coding Level of Care Code Est Pt Level 3 (21374) Diagnoses Abdominal pain R10.9 Gastric mass K31.89 Assessment & Plan Assessment & Plan (1) Abdominal pain: Code(s): R10.9 - Unspecified abdominal pain Category: Medical Plan: Worsening?abdominal?pain?and?recent?imaging?at?[facility]?shows?a?gastric?ma ss?suspicious?for?adenocarcinoma?and?hepatic?masses?concerning?for?metastases. Referred?to?Hematology-Oncology Referred?to?Gastroenterology Offered?to?discuss?medications?for?anxiety/depression?but?patient?declines?these ?for?now. Offered?to?refer?patient?to?therapist?but?patient?declines?this?for?now. I?let?him?know?that?he?can?discuss?this?with?me?at?any?time. Denies?current?thoughts?of?harming?himself?and?I?let?him?know?that?he?can?come?h ere?if?he?is?having?such?thoughts. Will?give?patient?increased?pain?control?with?Percocet. Follow-up?in?2?weeks (2) Gastric mass: Code(s): K31.89 - Other diseases of stomach and duodenum Category: Medical Plan: As?above Orders: Referrals Hematology & Oncology Referral K31.89 - Other diseases of stomach and duodenum, R16.0 - Hepatomegaly, not elsewhere classified Gastroenterology Referral K31.89 - Other diseases of stomach and duodenum, R16.0 - Hepatomegaly, not elsewhere classified Medications: New oxycodone-acetaminophen 5-325 mg (Percocet) MassPat Verfied. Partial Fill upon patient request. 1 tab PO TID 30 days PRN 90 tabs 0RF pain naloxone 4 mg/actuation (Narcan) spray 1 dose into ONE nostril; alternate nostrils w each dose until help arrives 4 mg intranasal Q3M PRN 2 ea 1RF opioid overdose polyethylene glycol 3350 (Miralax) 17 grams PO DAILY 14 days PRN 14 ea 0RF constipation
[2024-05-27 10:15] VITALS: BP 128/59; PULSE 96; RESP 16; TEMP 36.5; O2SAT 97; BMI 31.2
== END 2024-05-27 10:30 | disposition home or self-care (01) ==
LOC: HO.HMCFM 10:06
PROVIDERS: PCP Family Medicine; Visit Provider Family Medicine
DX: R10.9 Unspecified abdominal pain (principal); K31.89 Other diseases of stomach and duodenum

== ENCOUNTER → 2024-05-27 10:06 | Outpatient (BNVA) | payer OTHER, SELFPAY | PROVIDERS: PCP Family Medicine; Visit Provider Family Medicine ==